=== PATIENT | female | born 1945 | race Caucasian/White ===

== ENCOUNTER → 2023-12-19 12:30 | Outpatient (REF) | payer MEDICARE, SELFPAY ==
[2023-12-19 15:58] LABS: % Eosinophils 0.5 % (0-6); % Immature Granulocytes 0.3 % (0-0.5); % Lymphocytes 13.7 % (20.5-51.1); % Neutrophils 79.5 % (42.2-75.2); Absolute Basophils 0.1 10^3/uL (0-0.2); Absolute Eosinophils 0.1 10^3/uL (0-0.7); Absolute Lymphocytes 1.3 10^3/uL (1.2-3.4); Absolute Monocytes 0.5 10^3/uL (0.1-0.6); Absolute Neutrophils 7.8 10^3/uL (1.4-6.5); Hematocrit 34.8 % (37.0-47.0); Hemoglobin 11.3 g/dL (12.0-16.0); Mean Corp Hgb Conc. 32.5 g/dL (33.0-37.0); Mean Corpuscular Volume 89.2 fL (81.0-99.0); Mean Platelet Volume 11.6 fL (7.4-10.4); Nucleated Red Blood Cells % 0 %; Platelet Count 258 10^3/uL (130-400); Red Cell Dist. Width 16.9 % (11.5-14.5); White Blood Cell Count 9.8 10^3/uL (4.8-10.8)
[2023-12-19 16:05] LABS: ALT (SGPT) 13 U/L (0-35); AST (SGOT) 19 U/L (14-36); Albumin 3.5 g/dl (3.5-5.0); Alkaline Phosphatase 62 U/L (38-126); Blood Urea Nitrogen 16 mg/dl (7-17); Carbon Dioxide 28 mmol/L (22-30); Chloride 105 mmol/L (98-107); Glucose 85 mg/dl (70-99); Potassium 4.7 mmol/L (3.5-5.1); Sodium 137 mmol/L (135-145); Total Bilirubin 0.7 mg/dl (0.2-1.3); Total Protein 6.4 g/dl (6.3-8.2); eGFR > 60.00
[2023-12-20 09:32] LABS: Glycohemoglobin (HgbA1c) 5.8 % (4.0-5.6)
== END ==
LOC: HWLAB 12:30
PROVIDERS: ATTENDING PHYSICIAN Internal Medicine
DX: I48.0 Paroxysmal atrial fibrillation (principal); E11.9 Type 2 diabetes mellitus without complications
CPT/HCPCS: 36415; 80053; 83036; 85025

== ENCOUNTER → 2024-02-08 09:03 | Outpatient (REF) | payer MEDICARE, SELFPAY | LOC: RAD 09:03 | PROVIDERS: ATTENDING PHYSICIAN Internal Medicine Gastroenterology; FAMILY PHYSICIAN Internal Medicine | DX: R13.10 Dysphagia, unspecified (principal); R10.9 Unspecified abdominal pain; R63.4 Abnormal weight loss | CPT/HCPCS: 74246 ==

== ENCOUNTER → 2024-07-24 10:24 | Outpatient (REF) | payer MEDICARE, OTHER, SELFPAY ==
[2024-07-24 12:10] LABS: % Basophils 1.7 % (0-2); % Eosinophils 1.5 % (0-6); % Immature Granulocytes 0.6 % (0-0.5); % Lymphocytes 19.4 % (20.5-51.1); % Monocytes 7.8 % (1.7-9.3); Absolute Basophils 0.1 10^3/uL (0-0.2); Absolute Eosinophils 0.1 10^3/uL (0-0.7); Absolute Lymphocytes 1.3 10^3/uL (1.2-3.4); Absolute Monocytes 0.5 10^3/uL (0.1-0.6); Absolute Neutrophils 4.5 10^3/uL (1.4-6.5); Hematocrit 36.4 % (37.0-47.0); Hemoglobin 11.4 g/dL (12.0-16.0); Mean Corp Hgb Conc. 31.3 g/dL (33.0-37.0); Mean Corpuscular Hgb 27.7 pg (27.0-31.0); Mean Corpuscular Volume 88.6 fL (81.0-99.0); Mean Platelet Volume 11.5 fL (7.4-10.4); Nucleated Red Blood Cells % 0 %; Platelet Count 218 10^3/uL (130-400); Red Blood Cell Count 4.11 10^6/uL (4.20-5.40); Red Cell Dist. Width 17.2 % (11.5-14.5); Urine Albumin Trace (Neg - Trace); Urine Bilirubin 1+ (Negative); Urine Character Clear (Clear); Urine Color Yellow; Urine Glucose Negative (Negative); Urine Ketone Negative (Negative); Urine Leukocyte Trace (Negative); Urine Nitrite Positive (Negative); Urine Occult Blood Trace (Negative); Urine Specific Gravity 1.015 (<1.030); Urine Urobilinogen Negative (Neg - 1+); White Blood Cell Count 6.6 10^3/uL (4.8-10.8)
[2024-07-24 12:29] LABS: Urine Bacteria Many (Negative); Urine Red Blood Cell 0-2 /HPF (0-2)
[2024-07-24 12:39] LABS: AST (SGOT) 17 U/L (14-36); Albumin 3.8 g/dl (3.5-5.0); Alkaline Phosphatase 55 U/L (38-126); Blood Urea Nitrogen 27 mg/dl (7-17); Calcium 9.2 mg/dl (8.4-10.2); Carbon Dioxide 30 mmol/L (22-30); Chloride 101 mmol/L (98-107); Glucose 83 mg/dl (70-99); Potassium 4.7 mmol/L (3.5-5.1); Sodium 142 mmol/L (135-145); Total Bilirubin 0.7 mg/dl (0.2-1.3); Total Protein 6.5 g/dl (6.3-8.2); eGFR > 60.00
[2024-07-24 12:49] LABS: ALT (SGPT) 12 U/L (0-35)
[2024-07-24 13:14] LABS: Glycohemoglobin (HgbA1c) 5.7 % (4.0-5.6)
== END ==
LOC: HWLAB 10:24
PROVIDERS: ATTENDING PHYSICIAN Internal Medicine; REFERRING PHYSICIAN Internal Medicine Cardiovascular Disease
DX: I10 Essential (primary) hypertension (principal); I35.0 Nonrheumatic aortic (valve) stenosis; E11.9 Type 2 diabetes mellitus without complications; N39.0 Urinary tract infection, site not specified
CPT/HCPCS: 36415; 80053; 81003; 81015; 83036; 85025; 87086; 87088; 87186

== ENCOUNTER 2024-11-09 14:14 | Emergency (ER) | payer MEDICARE, OTHER, SELFPAY ==
[2024-11-09] VITALS (7 sets, daily range): BP systolic 116–159; BP diastolic 69–93; BMI 36.7
--- NOTE | 2024-11-09 15:04 | ED.GENMED ---
History of Present Illness
<Rand Dickson PA-C - Last Filed: 11/09/24 19:55>
General
Chief Complaint: Breathing Problem
Source: patient
Exam Limitations: none
Time Seen by Provider: 11/09/24 14:49
Nursing documentation reviewed up to this point in time: agreed with
History of Present Illness
History of Present Illness:
This is a 79-year-old female with past medical history of CHF, A-fib on Eliquis, aortic stenosis, CHF who presents emergency department today with cough and shortness of breath for the past 2 days. She also notes generalized fatigue and weakness.
She also feels a pressure in the center of her chest. She denies any syncopal episodes, denies any fevers or chills. She lives with her daughter and granddaughter at home and notes that they have been sick recently. Denies any hemoptysis. She
denies any worsening swelling in her legs or any weight gain. She denies any upper back pain. She denies any rashes. She states that she believes she has a cold but today become increasingly shortness of breath so she decided to present to
emergency department today. She denies any palpitations, she states that she is always in atrial fibrillation.
Phy Exam
<Rand Dickson PA-C - Last Filed: 11/09/24 19:55>
Physical Exam
Physical Exam:
General: Patient is well appearing and in no acute distress; non-toxic
Skin: Warm and dry, no rashes or lesions
Head: Normocephalic, atraumatic
Eyes: Sclera non-icteric. EOMs intact.
Cardiac: Irregularly irregular rhythm with mild tachycardia noted
Peripheral Vascular: Mild bilateral pedal edema, 2+ dorsalis pedis pulses and posterior tibial pulses bilaterally
Pulm: Increased respiratory effort, tachypnea, conversational dyspnea, scattered rhonchi heard throughout
Abdomen: No abdominal tenderness to palpation
Neuro: CN II-XII intact, no focal neurologic deficits.
Psychiatric: Appropriate mood and affect.
Scores
<Rand Dickson PA-C - Last Filed: 11/09/24 19:55>
Heart Failure Risk
Heart Failure Risk Score: Yes
History of Stroke or TIA: No
History of intubation for respiratory distress: No
Heart rate on ED arrival >/= 110: No
SaO2 <90% on arrival on room air: No
HR >/=110 during 3min walk test (or too ill to perform test): No
ECG has acute ischemic changes: No
Urea >/=12mmol/L (BUN 33.6mg/dL): No
Serum CO2>/=35mmol/L: No
Troponin I or T elevated to MA Level (0.4mg/dL): No
NT-proBNP >/=5,000ng/L (5,000pg/ml): No
HF Risk Score: 0
Admission Status: LOW RISK 2.8% Consider discharge to home with f/u visit to PCP/Super[facility]
Course
<Rand Dickson PA-C - Last Filed: 11/09/24 19:55>
Orders/Labs/Results
Orders:
Orders
11/09/24 14:15
Electrocardiogram (*1) Urgent
Reason for Study: Shortness of Breath
EKG- Treatment ONCE
11/09/24 15:13
CXR2 [CR Chest - 2 Views ] Urgent
Comment:
Reason For Exam: Cough
11/09/24 15:25
COVID-19 Antigen Urgent
Source: Nasal Swab
Complete Blood Count/With Diff Urgent
Comprehensive Metabolic Panel Urgent
Influenza A+B Rapid Molecular Urgent
JORGE Source: Nasal Swab
Specimen Description:
11/09/24 16:03
NT-proBNP Urgent
Troponin I Urgent
11/09/24 17:12
Electrocardiogram (*1) Urgent
Reason for Study: Chest Pain
11/09/24 19:01
Troponin I Urgent
11/09/24 19:42
Doxycycline [Vibramycin] 100 mg PO NOW STA
Abnormal Lab Results
11/09/24
15:25
MCHC 31.4 L g/dL
(33.0-37.0)
RDW 16.8 H %
(11.5-14.5)
Absolute Monos (auto) 0.9 H 10^3/uL
(0.1-0.6)
Lymphocytes % 18.8 L %
(20.5-51.1)
Monocytes % 10.7 H %
(1.7-9.3)
Total Protein 6.2 L g/dl
(6.3-8.2)
11/09/24 15:25
11/09/24 15:25
Vital Signs
Initial and Last Documented VS:
Initial Vital Signs
Temp Pulse Resp BP Pulse Ox
98.9 F 81 18 156/88 99
11/09/24 14:17 11/09/24 14:17 11/09/24 14:17 11/09/24 14:17 11/09/24 14:17
Last Documented Vital Signs
Temp Pulse Resp BP Pulse Ox
98.9 F 89 18 159/85 98
11/09/24 14:17 11/09/24 19:15 11/09/24 19:15 11/09/24 19:00 11/09/24 19:15
Xavierlt;Diego Keith DO - Last Filed: 11/09/24 15:28>
Orders/Labs/Results
Orders:
Orders
11/09/24 14:15
Electrocardiogram (*1) Urgent
Reason for Study: Shortness of Breath
EKG- Treatment ONCE
11/09/24 15:13
CXR2 [CR Chest - 2 Views ] Urgent
Comment:
Reason For Exam: Cough
11/09/24 15:25
COVID-19 Antigen Urgent
Source: Nasal Swab
Complete Blood Count/With Diff Urgent
Comprehensive Metabolic Panel Urgent
Influenza A+B Rapid Molecular Urgent
JORGE Source: Nasal Swab
Specimen Description:
11/09/24 16:03
NT-proBNP Urgent
Troponin I Urgent
11/09/24 17:12
Electrocardiogram (*1) Urgent
Reason for Study: Chest Pain
11/09/24 19:01
Troponin I Urgent
11/09/24 19:42
Doxycycline [Vibramycin] 100 mg PO NOW STA
Abnormal Lab Results
11/09/24
15:25
MCHC 31.4 L g/dL
(33.0-37.0)
RDW 16.8 H %
(11.5-14.5)
Absolute Monos (auto) 0.9 H 10^3/uL
(0.1-0.6)
Lymphocytes % 18.8 L %
(20.5-51.1)
Monocytes % 10.7 H %
(1.7-9.3)
Total Protein 6.2 L g/dl
(6.3-8.2)
11/09/24 15:25
11/09/24 15:25
Vital Signs
Initial and Last Documented VS:
Initial Vital Signs
Temp Pulse Resp BP Pulse Ox
98.9 F 81 18 156/88 99
11/09/24 14:17 11/09/24 14:17 11/09/24 14:17 11/09/24 14:17 11/09/24 14:17
Last Documented Vital Signs
Temp Pulse Resp BP Pulse Ox
98.9 F 89 18 159/85 98
11/09/24 14:17 11/09/24 19:15 11/09/24 19:15 11/09/24 19:00 11/09/24 19:15
<Rand Dickson PA-C - Last Filed: 11/09/24 19:55>
MDM/Problems Addressed
Differential Diagnosis Includes:
CHF exacerbation, pneumonia, upper respiratory infection, ACS
MDM/Problems Addressed:
79 year-old female with past medical history of A-fib on Eliquis, CHF, hypertension, hyperlipidemia presents to the ER today with concerns of shortness of breath and chest tightness. On physical exam, she is well-appearing in no acute distress.
She is alert and oriented x 3. She is not hypoxic. I do hear scattered rhonchi heard throughout. She was sent for chest x-ray which shows no evidence of pneumonia. She notes no new lower extremity edema, no orthopnea. proBNP elevated at 2230
expect this to likely be a chronic finding as patient has a history of heart failure. She does take 20 mg once daily. I suspect patient's symptoms represent acute bronchitis. Patient did mention to me later that she forgot to tell me that she has
been having darker stools recently. She states that occasionally they look almost black. I did perform a rectal exam and there is no stool within the rectal vault. Patient was seen here in the emergency department for approximately 5 and half
hours and did not have a bowel movement. Considering her H&H is stable, feel that patient can be followed up on outpatient basis, did stress return precautions to patient regarding this symptom. Will send patient home on doxycycline for acute
bronchitis. Patient stable for discharge.
Chronic conditions affecting care:
afib, htn, chf, hlp
<Rand Dickson PA-C - Last Filed: 11/09/24 19:55>
*Pulse Oximetry
Patient hypoxic: no
*Critical Care Note
Total Time (30-74mins, 75-104mins- exclusive of procedures): Not Applicable
Data Reviewed
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
Source: patient and records
<Rand Dickson PA-C - Last Filed: 11/09/24 19:55>
Update Note
Update Note:
5:30 pm-- I checked on patient and told her about
ED Attending Note
<Rand Dickson PA-C - Last Filed: 11/09/24 19:55>
-
Portions of this chart may have been created with voice recognition software.� Occasional wrong word or��sound alike� substitutions may have occurred due to the inherent limitations of voice recognition software.
<Diego Keith DO - Last Filed: 11/09/24 15:28>
ED Attending Note
Patient seen and examined by attending physician: Yes
I performed the substantive portion of visit, reviewed & personally made and approve the management plan that is documented in note by myself or HILARIA.: Yes
ED Attending Note:
Patient presents with chest discomfort and some shortness of breath. No known fever. She does have a cough. Patient states she feels short of breath from time to time.
Afebrile here
Lungs: Coarse breath sounds bilaterally
Abdomen: Soft nontender
Will obtain labs, flu swabs, chest x-ray
Discharge Plan
Departure
Patient Disposition: Home (Routine Discharge)
Date of Disposition: 11/09/24
Time of Disposition: 19:42
Patient with high blood pressure during this ER visit?: Yes
Condition: Good
Discharge Problem:
Acute bronchitis
Instructions: Acute bronchitis in adults, BLOOD PRESSURE
Prescriptions:
New
doxycycline hyclate 100 mg capsule
100 mg PO BID 7 Days Qty: 14 0RF
No Action
Eliquis 5 MG tablet
5 mg PO BID Qty: 0 0RF
acetaminophen [Tylenol] 325 mg Tablet
650 mg PO BID
meclizine 25 mg Tablet
25 mg PO DAILYPRN PRN (Reason: dizziness)
metformin 500 MG tablet
500 mg PO BID Qty: 0 0RF
Rx Instructions:
restart taking 11/18
metoprolol succinate [Toprol XL] 100 mg tablet extended release 24 hr
100 mg PO BID Qty: 180 5RF
Referrals:
Juan David Valencia MD [Family Provider] -
Activity Restrictions/Additional Instructions:
Doxycycline has been sent to your pharmacy. You can take one tablet twice daily for 7 days.
Please follow up with your primary care provider as scheduled on Nov 14. Please make them aware that you have been having darker stools recently. Your hemoglobin today is 12.2 and your vital signs are stable. We were not able to attain a stool
sample in the emergency department today.
Your troponin blood test was undetectable x2.
PLEASE RETURN TO THE EMERGENCY DEPARTMENT SHOULD YOU EXPERIENCE AN ACUTE WORSENING OF YOUR SYMPTOMS, TROUBLE BREATHING, BACK PAIN, FEVERS OR CHILLS, ALTERED MENTAL STATUS, CONFUSION, RECTAL BLEEDING, ABDOMINAL PAIN, HEADACHES, OR ANY OTHER SIGNS OR
SYMPTOMS CONCERNING TO YOU.
Interventions
Interventions:
*Risk Screen - Suicide Last Done: 11/09/24 14:17
*General Assessment Last Done: 11/09/24 14:17
*Neglect/Abuse Screening Last Done: 11/09/24 14:17
ED- Fall Risk Assessment Last Done: 11/09/24 15:10
*ED COVID-19 Vaccine History Last Done: 11/09/24 15:10
ED- Cardiac Assessment Last Done: 11/09/24 15:11
ED- Pulmonary Assessment Last Done: 11/09/24 15:11
Discharge Date and Time
Print Language: MONGOLIAN
[2024-11-09 15:39] LABS: % Basophils 0.8 % (0-2); % Eosinophils 1.3 % (0-6); % Immature Granulocytes 0.5 % (0-0.5); % Lymphocytes 18.8 % (20.5-51.1); % Monocytes 10.7 % (1.7-9.3); % Neutrophils 67.9 % (42.2-75.2); Absolute Basophils 0.1 10^3/uL (0-0.2); Absolute Eosinophils 0.1 10^3/uL (0-0.7); Absolute Lymphocytes 1.6 10^3/uL (1.2-3.4); Absolute Monocytes 0.9 10^3/uL (0.1-0.6); Absolute Neutrophils 5.6 10^3/uL (1.4-6.5); Hematocrit 38.8 % (37.0-47.0); Hemoglobin 12.2 g/dL (12.0-16.0); Mean Corp Hgb Conc. 31.4 g/dL (33.0-37.0); Mean Corpuscular Hgb 28.6 pg (27.0-31.0); Mean Corpuscular Volume 90.9 fL (81.0-99.0); Mean Platelet Volume 10.1 fL (7.4-10.4); Nucleated Red Blood Cells % 0 %; Platelet Count 251 10^3/uL (130-400); Red Blood Cell Count 4.27 10^6/uL (4.20-5.40); Red Cell Dist. Width 16.8 % (11.5-14.5); White Blood Cell Count 8.3 10^3/uL (4.8-10.8)
[2024-11-09 15:54] LABS: ALT (SGPT) 10 U/L (0-35); AST (SGOT) 17 U/L (14-36); Albumin 3.6 g/dl (3.5-5.0); Alkaline Phosphatase 60 U/L (38-126); Blood Urea Nitrogen 17 mg/dl (7-17); Calcium 8.7 mg/dl (8.4-10.2); Carbon Dioxide 29 mmol/L (22-30); Chloride 102 mmol/L (98-107); Estimated Creatinine Clearance 75 ml/min; Glucose 93 mg/dl (70-99); Potassium 5.1 mmol/L (3.5-5.1); Sodium 138 mmol/L (135-145); Total Bilirubin 0.7 mg/dl (0.2-1.3); Total Protein 6.2 g/dl (6.3-8.2); eGFR > 60.00
[2024-11-09 15:56] LABS: COVID-19 Antigen Negative (Negative)
[2024-11-09 16:32] LABS: NT-proBNP 2230 pg/ml; Troponin I < 0.012 ng/ml
[2024-11-09 19:33] LABS: Troponin I < 0.012 ng/ml
[2024-11-09] MEDS: VIBRAMYCIN 100 MG PO (19:46)
== END 2024-11-09 20:30 | disposition home or self-care (01) ==
LOC: EMR 14:14
PROVIDERS: Physician Assistant; EMERGENCY PHYSICIAN Emergency Medicine; FAMILY PHYSICIAN Internal Medicine
DX: J20.9 Acute bronchitis, unspecified (principal); I11.0 Hypertensive heart disease with heart failure; I50.9 Heart failure, unspecified; E78.5 Hyperlipidemia, unspecified; Z11.52 Encounter for screening for COVID-19
CPT/HCPCS: 99285; 71046; 80053; 83880; 84484; 85025; 87502; 87811; 93005

== ENCOUNTER → 2025-02-13 11:35 | Outpatient (REF) | payer MEDICARE, OTHER, SELFPAY ==
[2025-02-13 13:28] LABS: % Eosinophils 3.9 % (0-6); % Immature Granulocytes 0.3 % (0-0.5); % Lymphocytes 22.4 % (20.5-51.1); % Monocytes 9.3 % (1.7-9.3); % Neutrophils 63.1 % (42.2-75.2); Absolute Basophils 0.1 10^3/uL (0-0.2); Absolute Eosinophils 0.3 10^3/uL (0-0.7); Absolute Lymphocytes 1.8 10^3/uL (1.2-3.4); Absolute Monocytes 0.7 10^3/uL (0.1-0.6); Hematocrit 36.3 % (37.0-47.0); Hemoglobin 11.4 g/dL (12.0-16.0); Mean Corp Hgb Conc. 31.4 g/dL (33.0-37.0); Mean Corpuscular Hgb 29.8 pg (27.0-31.0); Mean Corpuscular Volume 94.8 fL (81.0-99.0); Mean Platelet Volume 11.9 fL (7.4-10.4); Nucleated Red Blood Cells % 0 %; Platelet Count 224 10^3/uL (130-400); Red Blood Cell Count 3.83 10^6/uL (4.20-5.40); Red Cell Dist. Width 15.9 % (11.5-14.5); White Blood Cell Count 7.9 10^3/uL (4.8-10.8)
[2025-02-13 13:42] LABS: ALT (SGPT) 11 U/L (0-35); AST (SGOT) 15 U/L (14-36); Albumin 3.8 g/dl (3.5-5.0); Alkaline Phosphatase 51 U/L (38-126); Blood Urea Nitrogen 22 mg/dl (7-17); Calcium 8.8 mg/dl (8.4-10.2); Carbon Dioxide 27 mmol/L (22-30); Chloride 103 mmol/L (98-107); Glucose 91 mg/dl (70-99); HDL Cholesterol 46 mg/dl; LDL Cholesterol, Calculated 43 mg/dl; Potassium 4.5 mmol/L (3.5-5.1); Sodium 141 mmol/L (135-145); Total Bilirubin 0.6 mg/dl (0.2-1.3); Total Cholesterol 107 mg/dl (50-199); Total Protein 6.4 g/dl (6.3-8.2); Triglyceride 93 mg/dl (10-149); Very Low Density Lipoprotein 18 mg/dl (0-30); eGFR > 60.00
[2025-02-13 13:59] LABS: Free T4 0.99 ng/dl (0.78-2.19)
[2025-02-13 14:12] LABS: TSH 1.33 uIU/ml (0.47-4.68)
[2025-02-14 08:59] LABS: Glycohemoglobin (HgbA1c) 5.4 % (4.0-5.6)
== END ==
LOC: OLABLV 11:35
PROVIDERS: ATTENDING PHYSICIAN Nurse Practitioner Gerontology
DX: D68.69 Other thrombophilia (principal); E11.9 Type 2 diabetes mellitus without complications; E78.5 Hyperlipidemia, unspecified; I11.9 Hypertensive heart disease without heart failure; E55.9 Vitamin D deficiency, unspecified
CPT/HCPCS: 36415; 80053; 80061; 82306; 83036; 84439; 84443; 85025

== ENCOUNTER → 2025-02-27 10:10 | Outpatient (REF) | payer MEDICARE, OTHER, SELFPAY ==
[2025-02-27 10:56] LABS: Blood Urea Nitrogen 24 mg/dl (7-17); Calcium 9.2 mg/dl (8.4-10.2); Carbon Dioxide 30 mmol/L (22-30); Chloride 100 mmol/L (98-107); Glucose 86 mg/dl (70-99); Potassium 4.4 mmol/L (3.5-5.1); Sodium 141 mmol/L (135-145); eGFR > 60.00
== END ==
LOC: OLABLV 10:10
PROVIDERS: ATTENDING PHYSICIAN Nurse Practitioner Gerontology
DX: I11.0 Hypertensive heart disease with heart failure (principal); Z79.899 Other long term (current) drug therapy; Z79.84 Long term (current) use of oral hypoglycemic drugs
CPT/HCPCS: 36415; 80048

== ENCOUNTER → 2025-06-26 15:44 | Outpatient (REF) | payer MEDICARE, OTHER, SELFPAY | LOC: RCS 15:44 | PROVIDERS: ATTENDING PHYSICIAN Internal Medicine Cardiovascular Disease | DX: I48.20 Chronic atrial fibrillation, unspecified (principal) | CPT/HCPCS: 93306 ==